=== PATIENT | male | born 1990 | race Caucasian/White ===

== ENCOUNTER 2016-07-18 11:59 | Emergency (ER) | payer OTHER ==
[~2016-07-18] VITALS: Ht 170.2 cm; Wt 72.7 kg
[2016-07-18 12:53] LABS: BASO % 0.5 % (0.0-2.0); EOS # 0.1 (0.0-0.7); EOS % 1.8 % (0-4.0); GRAN # 3.6 (1.4-6.5); HEMATOCRIT 41.8 % (42.0-52.0); HEMOGLOBIN 13.7 g/dl (13.5-18.0); LYMPH % 33.9 % (20.0-51.0); MEAN CELL VOLUME 80 fl (80.0-100.0); MEAN CORPUSCULAR HEMOGLOBIN 26 pg (27.0-31.0); MEAN CORPUSCULAR HGB CONC 33 g/dl (33.0-37.0); MEAN PLATELET VOLUME 10.5 fl (7.4-10.4); MONO # 0.3 (0.1-0.6); MONO % 4.5 % (1.7-9.3); PLATELET COUNT 320 K/mm3 (130-400); REDCELL DISTRIBUTION WIDTH-CV 14.1 % (11.5-14.5)
[2016-07-18 13:07] LABS: ADJUSTED CALCIUM 9.6 mg/dL (8.4-10.2); ALBUMIN 4.5 gm/dL (3.5-5.0); BILIRUBIN,TOTAL 1.1 mg/dL (0.0-1.0); CREATININE, serum 0.81 mg/dL (0.66-1.25); POTASSIUM 3.7 mmol/L (3.4-5.0); TOTAL PROTEIN 8.2 gm/dL (6.4-8.2)
[2016-07-18 13:55] LABS: PH 7 (5-8); SQUAMOUS EPITHELIAL 0-2 /hpf; URINE APPEARANCE Clear; URINE BACTERIA None Seen /hpf; URINE BILIRUBIN Negative (NEGATIVE); URINE BLOOD Negative (NEGATIVE); URINE COLOR Straw; URINE GLUCOSE Negative (NEGATIVE); URINE KETONE Negative (NEGATIVE); URINE RBC 0-2 /hpf; URINE UROBILINOGEN Negative (NEGATIVE)
[2016-07-18] MEDS ORDERED: NORCO 325 MG-51 TAB PO (14:57)
[2016-07-18] MEDS ORDERED: MOTRIN 800800 MG/TAB PO (15:28)
[2016-07-18 16:16] VITALS: BP 122/72; PULSE 78; TEMP 98
[2016-07-19] MEDS ORDERED: FLEXERIL 1010 MG/TAB PO (19:48)
== END 2016-07-18 15:42 | disposition home or self-care (01) ==
LOC: COL.ER 11:59 → EDSEX 12:01 → COL.ER 12:01
PROVIDERS: Emergency Medicine
DX: S20.212A Contusion of left front wall of thorax, initial encounter (principal); S20.211A Contusion of right front wall of thorax, initial encounter; V43.52XA Car driver injured in collision with other type car in traffic accident, initial encounter; Y92.410 Unspecified street and highway as the place of occurrence of the external cause
CPT/HCPCS: Q9967

== ENCOUNTER 2016-07-19 19:03 | Emergency (ER) | payer OTHER ==
[~2016-07-19] VITALS: Ht 170.2 cm; Wt 72.7 kg
[~2016-07-19 19:03] MED LIST: MOTRIN 800800 MG/TAB PO; NORCO 325 MG-51 TAB PO
[2016-07-19 19:05] VITALS: BP 134/47
[2016-07-19] MEDS ORDERED: FLEXERIL 1010 MG/TAB PO (19:48)
[2016-07-19 19:50] VITALS: PULSE 95; TEMP 98.1
== END 2016-07-19 19:53 | disposition home or self-care (01) ==
LOC: COL.ER 19:03 → EDSEX 19:15 → COL.ER 19:15
DX: R07.89 Other chest pain (principal); M54.89 Other dorsalgia

== ENCOUNTER 2017-12-14 16:19 | Emergency (ER) | payer OTHER ==
[~2017-12-14] VITALS: Ht 167.6 cm; Wt 82.3 kg
[~2017-12-14 16:19] MED LIST changes: +FLEXERIL 1010 MG/TAB PO
[2017-12-14 16:21] VITALS: TEMP 98.6
[2017-12-14] MEDS ORDERED: CLOMID50 MG (16:31)
[2017-12-14 17:18] LABS: BASO % 0.4 % (0.0-2.0); EOS # 0.1 (0.0-0.7); EOS % 0.9 % (0-4.0); GRAN # 3.1 (1.4-6.5); GRAN % 53.9 % (42.2-75.2); HEMOGLOBIN 12.3 g/dl (13.5-18.0); LYMPH # 2.2 (1.2-3.4); LYMPH % 38.4 % (20.0-51.0); MEAN CELL VOLUME 80 fl (80.0-100.0); MEAN CORPUSCULAR HEMOGLOBIN 27 pg (27.0-31.0); MEAN CORPUSCULAR HGB CONC 34 g/dl (33.0-37.0); MONO # 0.4 (0.1-0.6); MONO % 6.2 % (1.7-9.3); PLATELET COUNT 303 K/mm3 (130-400); RED BLOOD COUNT 4.58 M/mm3 (4.20-5.60); REDCELL DISTRIBUTION WIDTH-CV 13.6 % (11.5-14.5)
[2017-12-14 17:19] LABS: HEMATOCRIT 36.5 % (42.0-52.0)
[2017-12-14 17:28] LABS: ALBUMIN 4.4 gm/dL (3.5-5.0); BILIRUBIN,TOTAL 0.5 mg/dL (0.0-1.0); CALCIUM 9.5 mg/dL (8.4-10.2); CREATININE, serum 0.71 mg/dL (0.66-1.25); POTASSIUM 3.8 mmol/L (3.4-5.0); TOTAL PROTEIN 8.1 gm/dL (6.4-8.2)
[2017-12-14 18:06] LABS: THYROID STIMULATING HORMONE 3.34 uIU/mL (0.465-4.680)
[2017-12-14 18:21] VITALS: BP 128/90; PULSE 74
== END 2017-12-14 18:22 | disposition home or self-care (01) ==
LOC: COL.ER 16:19
PROVIDERS: Physician Assistant
DX: N62 Hypertrophy of breast (principal)

== ENCOUNTER 2018-08-08 15:48 | Emergency (ER) | payer OTHER | END 2018-08-08 18:14 | disposition home or self-care (01) | LOC: COL.ER 15:48 | DX: L30.9 Dermatitis, unspecified (principal) ==

== ENCOUNTER 2018-08-13 18:41 | Emergency (ER) | payer OTHER ==
[~2018-08-13] VITALS: Ht 169 cm; Wt 76.0 kg
[~2018-08-13 18:41] MED LIST changes: +CLOMID50 MG; +NIZORAL SHAMPO120 M1 TP; +PREDNISONE20 MG PO
[2018-08-13 18:48] VITALS: BP 138/74; TEMP 97.9
[2018-08-13 20:49] VITALS: PULSE 79
== END 2018-08-13 20:49 | disposition home or self-care (01) ==
LOC: COL.ER 18:41
DX: S61.012A Laceration without foreign body of left thumb without damage to nail, initial encounter (principal); J10.1 Influenza due to other identified influenza virus with other respiratory manifestations; Z23 Encounter for immunization; W26.0XXA Contact with knife, initial encounter

== ENCOUNTER 2018-08-21 17:31 | Emergency (ER) | payer OTHER ==
[~2018-08-21] VITALS: Ht 170 cm; Wt 77.0 kg
[2018-08-21 17:36] VITALS: BP 134/75; PULSE 75; TEMP 97.8
== END 2018-08-21 18:34 | disposition left against medical advice (07) ==
LOC: COL.ER 17:31
DX: R60.9 Edema, unspecified (principal)

== ENCOUNTER 2018-08-23 17:45 | Emergency (ER) | payer OTHER ==
[2018-08-23 17:53] VITALS: BP 117/72; PULSE 79; TEMP 97.4
[2018-08-23] MEDS ORDERED: CEPHALEXIN500 M1 PO (17:58)
== END 2018-08-23 18:15 | disposition home or self-care (01) ==
LOC: COL.ER 17:45
DX: S61.012D Laceration without foreign body of left thumb without damage to nail, subsequent encounter (principal); X58.XXXD Exposure to other specified factors, subsequent encounter

== ENCOUNTER 2020-03-08 12:51 | Emergency (ER) | payer OTHER ==
[~2020-03-08] VITALS: Ht 170.2 cm; Wt 94.0 kg
[~2020-03-08 12:51] MED LIST changes: +CEPHALEXIN500 M1 PO
[2020-03-08 13:00] VITALS: BP 117/80; TEMP 97.7
[2020-03-08 14:20] VITALS: PULSE 92
== END 2020-03-08 14:20 | disposition home or self-care (01) ==
LOC: COL.ER 12:51
DX: B34.9 Viral infection, unspecified (principal); Z20.828 Contact with and (suspected) exposure to other viral communicable diseases